=== PATIENT | male | born 1990 | race Caucasian/White ===

== ENCOUNTER 2021-02-03 11:40 | Emergency (ER) | payer BC, SELFPAY ==
[2021-02-03 11:45] VITALS: BP 140/88; PULSE 95; TEMP 37; O2SAT 98
--- NOTE | 2021-02-03 12:02 | ED.GENADUL_ITS ---
Discharge Plan Disposition Patient Disposition: HOME Condition: Stable Discharge Details Clinical Impression: Abrasion of buccal mucosa Primary Care Provider: Naldo Barreto ED Provider: Neeraj Espino Home Meds and New Rx's Prescriptions: Continued calcium phos,dibas-vitamin D3 77-400 mg-unit Tablet 1 tab PO DAILY RF: 0 Discharge Instructions Additional Instructions: You appear to have an abrasion and scarring of the mucosal surface of your left inner cheek, also known as the buccal mucosa. Warm salt water gargles 4-6 times a day to promote healing. Observe a soft diet. Follow-up with dentistry as planned. Return to the ER for any acute concerns. Continue with your healthy lifestyle choices. Medical Decision Making 30-year-old male recovering alcoholic who notes some irritation of left buccal surface of cheek over 10 days time. He is healthy and well-appearing. Appears to have irritated and macerated area of the left cheek but it is not a mass, not an infection, and I do not appreciate leukoplakia. Discussed a soft diet and warm salt water rinses. He has a dentistry follow-up pending. He is stable for outpatient management. HPI General Mode of arrival: ambulatory . Date/Time Provider Initiated Documentation: 02/03/21 11:48 . Limitations to Documentation: no limitations . Information obtained by: patient . History of Present Illness 30 year old M presents to the emergency department with the chief complaint of Left cheek irritation for 10 days, described as mild, Quality is described as dull and constant, and is localized to the mouth and left. Patient reports no radiation. Patient started experiencing this day(s) and it has been constant. No relieving factors improve symptom(s), No exacerbating factors reported . Patient did receive the following treatments prior to arrival, none Related Data Home Medications Medication Instructions Recorded Confirmed calcium phos,dibas-vitamin D3 1 tab PO DAILY 02/03/21 02/03/21 Allergies Allergy/AdvReac Type Severity Reaction Status Date / Time No Known Allergies Allergy Unverified 02/03/21 11:49 General Stated Complaint: Orthopedic SWEETIE: 5 Review of Systems Narrative: No pain, no fever, no swelling, recently stopped heavy alcohol use COUNTS INCLUDE 234 BEDS AT THE [facility] Social History Smoking/Tobacco Use Status: Current every day Tobacco Type: cigarettes Smoking risk assessment performed?: Yes Alcohol Intake: former Drug use: Never Substance use type: does not use Do you feel safe at home: Yes Do you feel safe in your relationship?: Yes Exam Narrative Exam Narrative: GEN: awake, alert, oriented 3. Pleasant, well groomed, interactive. HEAD: Normocephalic, atraumatic ENT: Mucous membranes moist, oropharynx unremarkable without mass or swelling, there is small area of left buccal surface of scarred tissue. Nontender and no fluctuance., External ear exam unremarkable EYES: PERRL, EOMI NECK: Full ROM, no JOHNNY, no menigismus Neuro: Grossly normal neurologic exam, conversant, interactive. Psych: Speech fluent, thoughts congruent, affect normal Course Vital Signs Vital signs: Vital Signs Temperature 37.0 C 02/03/21 11:45 Pulse 95 H 02/03/21 11:45 Blood Pressure 140/88 02/03/21 11:45 Pulse Oximetry 98 02/03/21 11:45 Temperature 37.0 C 02/03/21 11:45 Temperature Source Temporal Artery Scan 02/03/21 11:45 Pulse 95 H 02/03/21 11:45 Respiratory Effort Non-Labored 02/03/21 11:47 Blood Pressure 140/88 02/03/21 11:45 Blood Pressure Position Sitting 02/03/21 11:45 Pulse Oximetry 98 02/03/21 11:45 Oxygen Delivery Method Room Air 02/03/21 11:45 Oxygen Flow Rate 0 02/03/21 11:45 Pain Level 0 02/03/21 11:50
== END 2021-02-03 12:21 | disposition home or self-care (01) ==
PROVIDERS: Emergency Provider Emergency Medicine; PCP Family Medicine
DX: S00.512A Abrasion of oral cavity, initial encounter (principal); X58.XXXA Exposure to other specified factors, initial encounter
CPT/HCPCS: 99282; 99283

== ENCOUNTER 2022-09-14 14:58 | Outpatient (REF) | payer BC, SELFPAY ==
[2022-09-14 14:46] LABS: HCT 45.6 % (40.0-50.0); HGB 15.6 g/dL (13.5-17.5); MCH 29.9 pg (27.0-33.0); MCHC 34.2 % (32.0-36.0); MCV 87 fL (80-95); MPV 9.8 fL (8.0-11.0); Platelet Count 273 10^3/uL (130-400); RBC 5.22 10^6/uL (4.36-5.78); RDW 11.7 % (11.8-14.1); RDW-SD 37.7 fL; WBC 6.15 10^3/uL (4.4-10.8)
[2022-09-14 15:32] LABS: ALT 44 U/L (16-63); AST 19 U/L (15-37); Albumin 4.5 g/dL (3.4-5.0); Alkaline Phosphatase 64 U/L (46-116); Anion Gap 7.6 mmol/L (3-11); BUN 12 mg/dL (7-18); Bilirubin, Total 0.4 mg/dL (0.2-1.0); CO2 27.4 mmol/L (21.0-32.0); Calcium 9.4 mg/dL (8.5-10.1); Calculated LDL 142 mg/dL (<100); Chloride 102 mmol/L (98-107); Cholesterol 204 mg/dL (<200); Estimated GFR 103.84 (mL/min/1.73m2); Glucose 103 mg/dL (74-106); HDL Cholesterol 47 mg/dL (40-60); Potassium 4.2 mmol/L (3.5-5.1); Sodium 137 mmol/L (136-145); TSH (W/Ref FT4) 1.61 uIU/mL (0.36-3.74); Total Protein 7.7 g/dL (6.4-8.2); Triglyceride 75 mg/dL (<150)
== END 2022-09-14 14:59 | disposition home or self-care (01) ==
LOC: NCHCN 14:58
PROVIDERS: PCP Family Medicine; Visit Provider Nurse Practitioner Family
DX: Z00.00 Encounter for general adult medical examination without abnormal findings (principal); R03.0 Elevated blood-pressure reading, without diagnosis of hypertension; K64.4 Residual hemorrhoidal skin tags; F10.11 Alcohol abuse, in remission; Z72.0 Tobacco use; Z13.29 Encounter for screening for other suspected endocrine disorder; Z13.220 Encounter for screening for lipoid disorders
CPT/HCPCS: 80053; 80061; 85027; 84443

== ENCOUNTER 2024-08-16 19:05 | Outpatient (REF) | payer BC, SELFPAY ==
[2024-08-16 15:04] LABS: Abs Immature Grans 0.01 10^3/uL (0.0-0.06); Absolute Basophil Count 0.05 10^3/uL (0.0-0.2); Absolute Eosinophil Count 0.21 10^3/uL (0.0-0.7); Absolute Lymphocyte Count 2.35 10^3/uL (1.2-3.4); Absolute Monocyte Count 0.45 10^3/uL (0.1-0.8); Absolute Neutrophil Count 3.24 10^3/uL (1.2-6.7); Basophils % 0.8 %; Eosinophils % 3.3 %; HCT 46.5 % (40.0-50.0); HGB 16.1 g/dL (13.5-17.5); Immature Grans % 0.2 %; Lymphocytes % 37.2 %; MCH 30.4 pg (27.0-33.0); MCHC 34.6 % (32.0-36.0); MCV 88 fL (80-95); MPV 9.6 fL (8.0-11.0); Monocytes % 7.1 %; Neutrophils % 51.4 %; Platelet Count 274 10^3/uL (130-400); RDW 11.8 % (11.8-14.1); RDW-SD 38.1 fL; WBC 6.31 10^3/uL (4.4-10.8)
== END 2024-08-16 19:06 | disposition home or self-care (01) ==
LOC: LBN 19:05
PROVIDERS: PCP Family Medicine; Visit Provider Physician Assistant Medical
DX: R19.5 Other fecal abnormalities (principal)
CPT/HCPCS: 85025

== ENCOUNTER 2025-01-29 14:45 | Outpatient (REF) | payer SELFPAY ==
[2025-01-29 16:53] LABS: ALT 48 U/L (16-63); AST 29 U/L (15-37); Albumin 4.2 g/dL (3.4-5.0); Alkaline Phosphatase 82 U/L (46-116); Anion Gap 11.5 mmol/L (3-11); BUN 13 mg/dL (7-18); Bilirubin, Total 0.6 mg/dL (0.2-1.0); CO2 24.5 mmol/L (21.0-32.0); CREATININE 0.9 mg/dL (0.70-1.30); Calcium 9.3 mg/dL (8.5-10.1); Calculated LDL 112 mg/dL (<100); Chloride 106 mmol/L (98-107); Cholesterol 199 mg/dL (<200); Estimated GFR 115.65 (mL/min/1.73m2); Glucose 123 mg/dL (74-106); HDL Cholesterol 53 mg/dL (>or=40); Potassium 3.6 mmol/L (3.5-5.1); Sodium 142 mmol/L (136-145); Total Protein 7.3 g/dL (6.4-8.2); Triglyceride 170 mg/dL (<150)
== END 2025-01-29 14:46 | disposition home or self-care (01) ==
LOC: NCHCN 14:45
PROVIDERS: PCP Family Medicine; Visit Provider Nurse Practitioner Family
DX: Z00.00 Encounter for general adult medical examination without abnormal findings (principal)
CPT/HCPCS: 80053; 80061